=== PATIENT | female | born 1955 | race Caucasian/White ===

== ENCOUNTER → 2023-05-04 | Outpatient (CLI) | payer OTHER ==
[~2023-05-04] MED LIST: HYDR1TAB94 PO; [UNRECOGNIZED DRUG - REMARK]
[2023-05-04 16:05] LABS: Bilirubin, Urine Neg (Neg); Blood, Urine 1+ (Neg); Glucose Qualitative, Urine Neg (Neg); Ketones, Urine Neg (Neg); Leukocyte Esterase, Urine 2+ (Neg); Nitrite, Urine Pos (Neg); Protein, Urine 2+ (Neg); Specific Gravity, Urine 1.015 (1.003-1.022); Urobilinogen, Urine NORM (Normal)
[2023-05-04 16:43] LABS: Color, Urine Yellow (P-Yellow)
[2023-05-04 16:44] LABS: Appearance, Urine Hazy (Clear)
[2023-05-04 16:56] LABS: Bacteria Many /hpf; Squamous Epithelial Cells Few /hpf (Few)
[2023-05-04 16:57] LABS: Granular Casts 0-2 /lpf (0)
== END | disposition home or self-care (01) ==
LOC: LAB 14:40 → LAB SHORT 14:40
PROVIDERS: Physician Assistant
DX: C53.9 Malignant neoplasm of cervix uteri, unspecified (principal); N18.9 Chronic kidney disease, unspecified; Z93.6 Other artificial openings of urinary tract status
CPT/HCPCS: 81001; 87077; 87086; 87186

== ENCOUNTER → 2023-08-25 | Outpatient (CLI) | payer OTHER ==
[2023-08-25 10:32] LABS: Source, Urine Clean Catch
[2023-08-25 13:23] LABS: Appearance, Urine Cloudy (Clear); Bilirubin, Urine Neg (Neg); Blood, Urine 3+ (Neg); Color, Urine Yellow (P-Yellow); Glucose Qualitative, Urine Neg (Neg); Ketones, Urine Neg (Neg); Leukocyte Esterase, Urine 3+ (Neg); Nitrite, Urine Pos (Neg); Protein, Urine 2+ (Neg); Specific Gravity, Urine 1.015 (1.003-1.022); Urobilinogen, Urine NORM (Normal)
[2023-08-25 13:49] LABS: Bacteria Many /hpf; White Blood Cells, Urine 50-100 /hpf (0-5)
[2023-08-25 13:51] LABS: Squamous Epithelial Cells Few /hpf (Few)
[2023-08-25 13:52] LABS: Mucus Light (0-Heavy); Transitional Epithelial Cells Rare /hpf (0-Rare)
== END ==
LOC: LAB 10:29 → LAB SHORT 10:29
PROVIDERS: Urology Female Pelvic Medicine and Reconstructive Surgery
DX: N39.0 Urinary tract infection, site not specified (principal); N13.30 Unspecified hydronephrosis
CPT/HCPCS: 81001; 87077; 87086; 87186

== ENCOUNTER → 2023-09-27 | Outpatient (CLI) | payer OTHER ==
[2023-09-27 13:24] LABS: Source, Urine Clean Catch
[2023-09-27 15:45] LABS: Appearance, Urine Cloudy (Clear); Bilirubin, Urine Neg (Neg); Blood, Urine 4+ (Neg); Color, Urine Yellow (P-Yellow); Glucose Qualitative, Urine Neg (Neg); Ketones, Urine Neg (Neg); Leukocyte Esterase, Urine 3+ (Neg); Nitrite, Urine Pos (Neg); Protein, Urine 3+ (Neg); Specific Gravity, Urine 1.015 (1.003-1.022); Urobilinogen, Urine NORM (Normal)
[2023-09-27 16:08] LABS: Red Blood Cells, Urine TNTC /hpf (0-2); White Blood Cells, Urine TNTC /hpf (0-5)
[2023-09-27 16:10] LABS: Bacteria Many /hpf; Squamous Epithelial Cells Few /hpf (Few)
[2023-09-27 16:11] LABS: Granular Casts 0-2 /lpf (0); Hyaline Casts 0-2 /lpf (0-2)
[2023-09-27 16:13] LABS: Transitional Epithelial Cells Rare /hpf (0-Rare)
== END | disposition home or self-care (01) ==
LOC: LAB SHORT 13:18 → LAB 13:18
PROVIDERS: Urology Female Pelvic Medicine and Reconstructive Surgery
DX: N39.0 Urinary tract infection, site not specified (principal); N13.30 Unspecified hydronephrosis
CPT/HCPCS: 81001; 87077; 87086; 87186

== ENCOUNTER 2023-09-29 02:48 | Day surgery (SDC) | payer OTHER ==
[~2023-09-29 02:48] MED LIST changes: +Ertapenem Sodium 1,000 MG in NS 50 ML IV SCH
[2023-09-29 09:49] VITALS: BP 105/77
== END 2023-09-29 10:38 | disposition home or self-care (01) ==
LOC: ATC 02:48
DX: N39.0 Urinary tract infection, site not specified (principal)
CPT/HCPCS: 96365; J1335

== ENCOUNTER 2023-10-01 01:20 | Day surgery (SDC) | payer OTHER ==
[2023-10-01 09:35] VITALS: BP 102/65
== END 2023-10-01 10:08 | disposition home or self-care (01) ==
LOC: ATC 01:20
DX: N39.0 Urinary tract infection, site not specified (principal)
CPT/HCPCS: 96365; J1335

== ENCOUNTER 2024-01-15 10:05 | Day surgery (SDC) | payer OTHER ==
[2024-01-15 10:17] VITALS: BP 96/58
== END 2024-01-15 10:32 | disposition home or self-care (01) ==
LOC: ATC 10:05
DX: N13.6 Pyonephrosis (principal)
CPT/HCPCS: 96374; J1335

== ENCOUNTER 2024-02-16 11:19 | Day surgery (SDC) | payer OTHER ==
[~2024-02-16 11:19] MED LIST changes: -Ertapenem Sodium 1,000 MG in NS 50 ML IV SCH
[2024-02-16] MEDS ORDERED: Ertapenem Sodium 1,000 MG in NS 50 ML IV SCH (11:40)
[2024-02-16 15:00] VITALS: BP 142/82
== END 2024-02-16 15:35 | disposition home or self-care (01) ==
LOC: ATC 11:19
DX: T83.512A Infection and inflammatory reaction due to nephrostomy catheter, initial encounter (principal); N39.0 Urinary tract infection, site not specified; Z90.5 Acquired absence of kidney; Z79.899 Other long term (current) drug therapy
CPT/HCPCS: 96365; J1335

== ENCOUNTER 2024-02-17 04:45 | Day surgery (SDC) | payer OTHER ==
[~2024-02-17 04:45] MED LIST changes: +Ertapenem Sodium 1,000 MG in NS 50 ML IV SCH
--- NOTE | 2024-02-17 15:53 | NUR ---
PATIENT SAID SHE DID NOT HAVE HER TUBES EXCHANGED TODAY. CALLED DR OFFICE MULTIPLE TIMES ASKING FOR INSTRUCTION FOR ANTIBIOTIC AND WHEN HER TUBE EXCHANGE MIGHT BE SCHEDULED. NEW ORDERS RECIEVED. IV ANTIBIOTIC NOT RECIEVED TODAY. PATIENT EDUCATED AND IV REMOVED.
== END 2024-02-17 15:44 | disposition home or self-care (01) ==
LOC: ATC 04:45
DX: T83.512A Infection and inflammatory reaction due to nephrostomy catheter, initial encounter (principal); N39.0 Urinary tract infection, site not specified; N13.30 Unspecified hydronephrosis; Z79.899 Other long term (current) drug therapy
CPT/HCPCS: 99211